=== PATIENT | male | born 1965 ===

== ENCOUNTER 2018-06-02 16:29 | Emergency (ER) | payer OTHER, SELFPAY ==
[2018-06-02 16:41] VITALS: BP 160/105; PULSE 20; RESP 102; TEMP 36.8; O2SAT 100; BMI 24.7
--- NOTE | 2018-06-02 18:49 | ED_ITS ---
HPI - Extremity Injury (Upper) General Chief Complaint: Extremity Injury, Upper Stated Complaint: RT POINTER FINGER CUT Time Seen by Provider: 06/02/18 18:06 Source: patient Mode of arrival: ambulatory Limitations: no limitations History of Present Illness HPI narrative: Patient is a 53-year-old male who sustained a cut to his right index finger just prior to arrival here in the emergency department. Patient states that he reached into a sink where there was a knife and he cut his finger. He states that there was a lot of blood and he tried to stop it with a bandage however he could not so he put Super glue over his finger in put bandages over it. He came into the emergency department for evaluation. He is up-to-date on his tetanus shot. Related Data Home Medications Medication Instructions Recorded Confirmed ACETAMINOPHEN (#TYLENOL) 500 mg PO BIDP #0 10/07/10 lisinopril 20 mg PO QDAY #0 12/30/11 Review of Systems Constitutional Denies fever(s) Musculoskeletal Denies myalgias, Denies arthralgias, Denies numbness and Denies tingling Integumentary/Breasts Comments: Cut her right index finger Neurologic Denies numbness and Denies tingling Hematologic/Lymphatic Comments: Not on anticoagulation PFSH Medical History Healthy adult (Acute) Surgical History No pertinent past surgical history (Acute) Social History Smoking Status: Never smoker Exam Initial Vital Signs Initial Vital Signs: Vital Signs Temperature 98.3 F 06/02/18 16:41 Pulse Rate 20 L 06/02/18 16:41 Respiratory Rate 102 H 06/02/18 16:41 Blood Pressure 160/105 H 06/02/18 16:41 Pulse Oximetry 100 06/02/18 16:41 Const General: cooperative, healthy appearing, comfortable, well developed, well groomed and No acute distress Orientation: alert, awake and oriented x3 HENMT Head: normal to inspection and normocephalic Skin Other: 3 cm cut in a U shaped on the pad of his right index finger. Does not involve the nail or the nail bed. Does not go proximal to the PIP joint. Neuro Sensory Exam: no sensory deficits noted Extrem Other: Patient able to flex and extend the MCP PIP and PIP joint of the right index finger Psych Appearance: grossly normal and well kempt Procedures Laceration Repair Laceration 1: Site: hand Side (If applicable): right Size (cm): 3 Description: other (U shaped) Depth: simple, single layer Local Anesthetic: lidocaine 1% Amount of anesthesia used (mL): 2 Pre-repair: wound explored, irrigated extensively and deep structures intact Skin layer closed with: nylon Size (cm): 4-0 Number of sutures: 3 Technique: simple, interrupted Course Vital Signs - 8 hr 06/02/18 16:41 06/02/18 19:54 Temperature 98.3 F Pulse Rate 20 L 80 Respiratory Rate 102 H 16 Blood Pressure 160/105 H 113/85 Pulse Oximetry 100 98 MDM - Extremity Injury (Upper) MDM Narrative Medical decision making narrative: Patient is neurovascularly intact. He is up- to-date on tetanus. We did discuss his options to include doing nothing, Steri- Strips with Dermabond versus suturing. The patient opted for sutures. It was numbed with lidocaine. Closed loosely with 3 stitches as described above. Covered with a bandage. Patient is given care instructions. He is given return precautions. He expressed understanding and agreement plan. Discharge Plan Departure Patient Disposition: Home Clinical Impression: Laceration of finger of right hand Discharge Date/Time: 06/02/18 19:55 Interventions: ED Discharge Assessment Last Done: 06/02/18 19:54 Instructions: DI for Laceration Repair -- Finger Activity Restrictions/Additional Instructions: Recommend you keep the bandage on for the next 24 hr. After that you can shower like normal and wash your hands like normal. Do not soak your hand in anything until the stitches are removed. The stitches do need to be removed in approximately 1 week. Return to the emergency department for any new or worsening symptoms Prescriptions: No Action ACETAMINOPHEN (#TYLENOL) 500 mg PO BIDP Qty: 0 RF: 0 lisinopril 20 MG tablet 20 mg PO QDAY Qty: 0 RF: 0
[2018-06-02 19:54] VITALS: BP 113/85; PULSE 80; RESP 16; O2SAT 98
== END 2018-06-02 19:55 | disposition home or self-care (01) ==
PROVIDERS: Emergency Provider Emergency Medicine
DX: S61.210A Laceration without foreign body of right index finger without damage to nail, initial encounter (principal); W26.0XXA Contact with knife, initial encounter
CPT/HCPCS: 12002; 99282